=== PATIENT | male | born 1935 | race Caucasian/White ===

== ENCOUNTER 2017-03-17 16:18 | Emergency (ER) | payer MEDICARE, OTHER ==
[~2017-03-17 16:18] MED LIST: ALFU10TA11 PO; AMLO1CAP5 PO; ASP81TEC PO; ATEN25TA38 PO; CALC-953 PO; CRES20T PO; CYAN10008 PO; LEVO75TA4 PO; LUTE6CAP PO; OXYB5TAB PO; TEMA15CA PO; THERAPEUTIC MULT PO; THIO300C PO; UBID200C17 PO; URO10ERT PO
[2017-03-17 16:25] VITALS: BP 165/65; PULSE 67; RESP 14; O2SAT 97
--- NOTE | 2017-03-17 16:36 | ED.REPORT ---
HPI-General Illness Date of Service Mar 17, 2017 ED Provider: The patient is an 81 year old male with history of coronary artery disease s/p CABG, atrial fibrillation, and hypertension, who presents to the emergency department complaining of throat swelling/pain and difficulty speaking. The patient has chronic back pain and was given 4 steroid injections yesterday completed by his orthopedist. He was told to go to the emergency department if he developed any concerning side effects, including: throat swelling or speech changes. 3 hours ago the patient developed throat swelling/pain and difficulty speaking. The difficulty speaking only lasted for about 10 seconds. His spouse did not notice anything different with his speech. He spoke with his doctor who recommended evaluation in the emergency department. At this time he only complains of throat pain. He has not had similar symptoms in the past. He denies new numbness, weakness or confusion. Nursing Notes Stated Complaint: SHORTNESS OF BREATH, TROUBLE SPEAKING Chief Complaint: General Complaint Nursing Notes Reviewed: Yes Allergies: Coded Allergies: celecoxib (Verified Allergy, Severe, SEVERE N&V, 03/20/16) Contrast Media (Verified Allergy, Unknown, UNKNOWN (TOPICAL IODINE, SHELLFISH OK), 03/20/16) Scheduled Alfuzosin ER (Alfuzosin ER) 10 Mg Tab.er.24h 10 MG PO DAILY Alfuzosin-Expunged Drug, Do Not Renew! (Uroxatral-Expunged Drug, Do Not Renew!) 10 Mg Tablet 10 MG PO DAILY Alpha Lipoic Acid (Alpha Lipoic Acid) 300 Mg Capsule 300 MG PO BID Amlodipine/Benazepril-Expunged, Do Not Renew! (Lotrel 04/04-Expunged Drug, Do Not Renew!) 1 Each Capsule 1 CAP PO QPM Aspirin-Expunged Drug, Do Not Renew! (Aspirin EC-Expunged Drug, Do Not Renew!) 81 Mg Tablet 81 MG PO QAM Atenolol-Expunged Drug, Do Not Renew! (Atenolol-Expunged Drug, Do Not Renew!) 25 Mg Tablet 25 MG PO QAM Levothyroxine (Levothyroxine) 75 Mcg Tablet 75 MCG PO DAILY Oxybutynin Chloride ER (Oxybutynin Chloride ER) 5 Mg Tab.er.24 5 MG PO DAILY Rosuvastatin-Expunged Drug, Do Not Renew! (Crestor-Expunged Drug, Do Not Renew! ) 20 Mg Tablet 20 MG PO HS Temazepam-Expunged Drug, Do Not Renew! (Temazepam-Expunged Drug, Do Not Renew!) 15 Mg Capsule 15-45 MG PO HSP Therapeutic Multivit/Min-Expunged Drug, Do No (Therapeutic Multivit/Min- Expunged Drug, Do No) 1 Ea Tab 1 EA PO NOON Ubidecarenone (Co Q10) 200 Mg Capsule 200 MG PO DAILY Miscellaneous Medications Calcium Citrate/Vitamin D3 (Calcium Citrate-Vit D3 Tablet) 1 Each Tablet 1 EACH PO 1299mg Calcium, 1000 U D3 Cyanocobalamin (Vitamin B-12) (Vitamin B-12) 1,000 Mcg Tablet 1,000 MCG PO Lutein (Lutein) 6 Mg Capsule 12 MG PO General Time Seen by MD: 16:36 Chief Complaint Other (throat swelling/pain and difficulty speaking) Hx Obtained From: Patient Arrived By: Walk-in Sudden in Onset?: Yes Onset Occurred: 1 - 4 hours ago Symptom Duration: 1 - 15 minutes Location: : Mouth (throat) Quality: Painful Severity: Current: Mild Severity: Maximum: Mild Recent Healthcare: No recent hospitalization, Recent doctor visit Similar Sx Previous: No Past Medical History Past Medical History Notes: PCP: Dr. Bellamy Past Medical History Uses CPAP during sleep Chronic back pain Degenerative Joint Osteoarthritis Reports: Coronary artery disease, Hypertension Reports: Atrial fibrillation Past Surgical History CABG in 2006 HEART CATH 1991 Hernia Repair Lumbar fusion Reports: Cholecystectomy Reports: Hip replacement Family History Noncontributory Smoking History Never Smoker Social History Other Social History: Good social support, , Local resident Ambulatory Status Independent Review of Systems +difficulty speaking Full Review of Systems Ears / Nose / Throat: Reports: Throat pain, Throat swelling Neurologic: Denies: Confusion, Focal weakness, Numbness Complete sys rev & neg: except as marked. Physical Exam Vital Signs Vital Signs Date Time Temp Pulse Resp B/P Pulse Ox O2 Delivery O2 Flow Rate FiO2 03/17/17 17:40 36.8 67 14 165/65 97 Room Air 03/17/17 16:25 36.8 67 14 165/65 97 Room Air Initial VS: Reviewed Head / Eyes: Atraumatic, Normocephalic, PERRL Respiratory: Breath sounds normal, Clear to auscultation, No respiratory distress Abdomen / GI: Soft, Non-tender, No guarding, No rebound, No distention Lymphatic: No lymphadenopathy Extremities: Vascular intact, Neuro intact, No swelling, No tenderness Skin: Warm, Dry, No cyanosis Neurologic: Alert, Oriented, Nonfocal Psychiatric: Mood/affect normal, Behavior normal, Normal thought content ENT: Atraumatic, Airway patent, Mucous membranes moist, Pharynx NL, No facial swelling Pharynx / Tonsils / Uvula: Negative: Peritonsil abscess L, Peritonsil abscess R , Tonsillar erythema L, Tonsillar erythema R, Tonsillar exudate L, Tonsillar exudate R, Tonsillar swelling L, Tonsillar swelling R Right Ear / Mastoid: Positive: Ext canal cerumen impact Left Ear / Mastoid: Negative: Tympanic memb perforated, Tympanic membrane bulging, Tympanic membrane red No throat or tongue swelling. No exudates. Neck: Non-tender, No midline vertebral tend Minor cervical adenopathy Cardiovascular: Heart rate NL, Regular rhythm, Cap refill not delayed, Peripheral circulation NL, Pulses = bilaterally Heart Sounds / Murmur: Positive: Systolic murmur present.. (early 3/6 systolic murmur heard across the entire precordium) Back: Inspection NL He has bandaids in place along the facets at L3 and L4 bilaterally. Re-Eval/Medical Decision Source of Hx: Old records Time of Eval: 16:49 Re-Evaluation/Progress Note: Discussed exam findings, diagnosis, and plan for discharge. All questions were addressed. Counseled Regarding: Diagnosis, Need for follow-up, When/why to return to ED Discharge & Departure Primary Impression: Throat irritation Disposition: Home Discharge Condition All VS Reviewed: Yes Condition: Stable Additional Instructions: Thank you for entrusting us with your care today. Your symptoms today wit the throat tightness do not seem to be related to the facet injections you had yesterday. It does seem that these injections have helped with your back pain. You can use Tylenol as needed for any discomfort. Seek care for any new or concerning symptoms. Referrals: Alexandr Bellamy MD (PCP) Hair Matias Attestation Portions of this note were transcribed by Corie Li. I, Dr. Huber personally performed the history, physical exam and medical decision-making; I reviewed and confirmed the accuracy of the information in the transcribed note. Signed by: Remedios Recio, 03/17/17 at 1717. copies to: Hair Matias DO; Alexandr Bellamy MD, Shawna L MD Mar 17, 2017 16:36 Corie Li Mar 17, 2017 16:42
[2017-03-17 17:40] VITALS: BP 165/65; PULSE 67; RESP 14; O2SAT 97
== END 2017-03-17 17:41 | disposition home or self-care (01) ==
LOC: SED 16:18
DX: R07.0 Pain in throat (principal); I10 Essential (primary) hypertension; I25.10 Atherosclerotic heart disease of native coronary artery without angina pectoris; Z95.1 Presence of aortocoronary bypass graft; Z79.82 Long term (current) use of aspirin; Z79.899 Other long term (current) drug therapy; Z88.1 Allergy status to other antibiotic agents; Z91.041 Radiographic dye allergy status